=== PATIENT | female | born 1940 | race Caucasian/White ===

== ENCOUNTER 2017-07-31 08:45 | Inpatient (IN) | payer MEDICARE, OTHER ==
[~2017-07-31] VITALS: Ht 154.9 cm; Wt 50.0 kg
[2017-07-31] VITALS (18 sets, daily range): BP systolic 90–144; BP diastolic 50–69
[~2017-07-31 08:45] MED LIST: ALBU6.7H INH; ASPI-1053 PO; ATOR40TA PO; ATR0.5NEB IH; BIOT5TAB PO; CELE200C PO; CITA20TA19 PO; CLOP75TA33 PO; ERGO500014 PO; FLO44IN IH; FURO-150 PO; HYDR-565 PO; LEVO25TA7 PO; LUTE40CA PO; METO-292 PO; MIRT15TA PO; MONT10TA21 PO; MULT-1179 PO; OMEG-166 PO; OSC500T PO; PANT-47 PO; POTA10TA10 PO
[2017-07-31] MEDS ORDERED: iohexol 350 MG/ML 50ML vial IV ONE (08:59)
[2017-07-31] MEDS ORDERED: LIDOcaine 1%/PF (10mg/ml) 5ml vial ONE ×2 (08:59→09:22)
[2017-07-31] MEDS ORDERED: iohexol 350 MG/1 ML 200ml bottle ONE (08:59)
[2017-07-31] MEDS ORDERED: normal saline 1000ML IV soln IVB ONE (09:10)
[2017-07-31 09:18] LABS: BASOPHILS % (AUTO) 0.5 % (0-1); EOSINOPHILS # (AUTO) 0.1 X10'3 (0-0.9); EOSINOPHILS % (AUTO) 1.2 % (0-6); HEMATOCRIT 38.5 % (35.0-45.0); HEMOGLOBIN 12.4 g/dl (12.0-16.0); LYMPHOCYTES # (AUTO) 1.6 X10'3 (1.1-4.8); MEAN CORPUSCULAR HGB CONC 32.3 % (33.0-36.5); MEAN CORPUSCULAR VOLUME 95.8 FL (78-98); MEAN PLATELET VOLUME 8.3 FL (7.4-10.4); MONOCYTES # (AUTO) 0.5 X10'3 (0-0.9); MONOCYTES % (AUTO) 6.9 % (2-12); NEUTROPHILS # (AUTO) 5.5 X10'3 (1.8-7.7); NEUTROPHILS % (AUTO) 70.4 % (42-75); PLATELET COUNT 309 X10'3 (140-440); RED BLOOD COUNT 4.02 X10'6 (4.20-5.60); RED CELL DISTRIBUTION WIDTH 16.9 % (11.5-14.5); WHITE BLOOD COUNT 7.8 X10'3 (4.5-11.0)
[2017-07-31 09:22] LABS: INR 1.1 INR; PARTIAL THROMBOPLASTIN TIME 30 SECONDS (22-32); PROTHROMBIN TIME 11.7 SECONDS (9.0-12.0)
[2017-07-31 09:26] LABS: ALANINE AMINOTRANSFERASE 60 U/L (12-78); ALBUMIN 2.8 G/DL (3.4-5.0); ALBUMIN/GLOBULIN RATIO 0.8 (1.1-1.5); ALKALINE PHOSPHATASE 161 IU/L (46-116); ANION GAP 8 (8-16); ASPARTATE AMINO TRANSFERASE 51 U/L (10-37); BILIRUBIN,TOTAL 0.3 MG/DL (0.1-1.0); BLOOD UREA NITROGEN 14 MG/DL (7-18); CALCIUM 8.2 MG/DL (8.5-10.1); CHLORIDE 100 MMOL/L (99-107); GLUCOSE 197 MG/DL (70-104); POTASSIUM 4.4 MMOL/L (3.5-5.1); SODIUM 134 MMOL/L (135-145); TOTAL CARBON DIOXIDE 26.4 MMOL/L (24-32); TOTAL PROTEIN 6.3 G/DL (6.4-8.2); eGFR 81 ML/MIN
[2017-07-31] MEDS ORDERED: DOPamine 400mg/D5W 250ml 250 ML IV ONE (09:41)
[2017-07-31] MEDS ORDERED: heparin 1,000unit/ml 10ml vial 10 ML ONE (09:41)
[2017-07-31] MEDS ORDERED: ticagrelor 90mg tablet ONE (09:52)
[2017-07-31 10:24] LABS: CHOL/HDL RATIO 2.1 (0.00-4.99); CHOLESTEROL 62 MG/DL (0-200); HDL CHOLESTEROL 30 MG/DL (35-60); LDL CHOLESTEROL 26 MG/DL (50-100); TRIGLYCERIDES 83 MG/DL (20-135)
[2017-07-31] MEDS ORDERED: proCHLORperazine 10 MG/2 ml inj IV PRN (10:55)
[2017-07-31] MEDS ORDERED: ondansetron/PF 4mg/2ml inj IV PRN (10:55)
[2017-07-31] MEDS ORDERED: acetaminophen 325mg tablet PO PRN (10:55)
[2017-07-31] MEDS ORDERED: HYDROcodone/acetaminophen 5mg/325mg tablet PO PRN (10:55)
[2017-07-31] MEDS ORDERED: albuterol 2.5 MG/3 ML nebule NEB PRN (11:25)
[2017-07-31] MEDS: metoclopramide 10mg tablet PO SCH ×2 (12:43→18:58)
[2017-07-31] MEDS: ipratropium 0.5 MG/2.5ML nebule IH SCH ×3 (14:00→21:00)
[2017-07-31 14:26] LABS: ISTAT HGB ART 11.2 g/dl (12.0-16.0); ISTAT Hct ART 33 %PCV (35-48); ISTAT O2 SATURATION ARTERIAL 100 % (95-98); ISTAT SOURCE ART
[2017-07-31] MEDS: HYDROcodone/acetaminophen 10/325mg tab PO PRN (15:01)
[2017-07-31] MEDS ORDERED: sodium phosphate inj. 30 MMOL in dextrose 5%-water 250 ML IV PRN (19:44)
[2017-07-31] MEDS ORDERED: sodium phosphate inj. 15 MMOL in dextrose 5%-water 150 ML IV PRN (19:44)
[2017-07-31] MEDS ORDERED: magnesium 4gm in 100ml NS 100 ML IV PRN (19:45)
[2017-07-31] MEDS ORDERED: magnesium 2GM in 50ml NS 50 ML IV PRN (19:45)
[2017-07-31] MEDS ORDERED: potassium Cl 40MEQ/NS 500ml 500 ML IV PRN ×2 (19:45)
[2017-07-31] MEDS ORDERED: Neutra Phos packet PO PRN (19:45)
[2017-07-31] MEDS ORDERED: potassium Cl 20 mEq SR tablet PO PRN ×2 (19:45)
[2017-07-31] MEDS ORDERED: magnesium Cl slow-release 64mg tablet PO PRN (19:45)
[2017-07-31 20:08] LABS: HEMATOCRIT 39.7 % (35.0-45.0); MEAN CORPUSCULAR HEMOGLOBIN 31.1 PG (27.0-31.0); MEAN CORPUSCULAR HGB CONC 32.8 % (33.0-36.5); MEAN CORPUSCULAR VOLUME 94.8 FL (78-98); MEAN PLATELET VOLUME 8.2 FL (7.4-10.4); PLATELET COUNT 251 X10'3 (140-440); RED BLOOD COUNT 4.19 X10'6 (4.20-5.60); RED CELL DISTRIBUTION WIDTH 17.4 % (11.5-14.5); WHITE BLOOD COUNT 9.1 X10'3 (4.5-11.0)
[2017-07-31] MEDS: normal saline 1000ml 1,000 ML IV SCH ×2 (20:15→20:55)
[2017-07-31 20:23] LABS: ALBUMIN 2.7 G/DL (3.4-5.0); ANION GAP 11 (8-16); BLOOD UREA NITROGEN 12 MG/DL (7-18); CALCIUM 8.1 MG/DL (8.5-10.1); CHLORIDE 102 MMOL/L (99-107); GLUCOSE 145 MG/DL (70-104); MAGNESIUM 1.6 MG/DL (1.5-2.4); PHOSPHORUS 3.6 MG/DL (2.3-4.5); POTASSIUM 4.1 MMOL/L (3.5-5.1); SODIUM 137 MMOL/L (135-145); eGFR > 90 ML/MIN
[2017-07-31] MEDS: pantoprazole 40mg Tablet.DR PO SCH (20:47)
[2017-07-31] MEDS: mirtazapine 15mg tablet PO SCH (20:47)
[2017-07-31] MEDS: atorvastatin 20mg tablet PO SCH (20:47)
[2017-07-31 21:08] LABS: TROPONIN I 115.51 NG/ML (0.0-0.05)
[2017-08-01] VITALS (14 sets, daily range): BP systolic 89–111; BP diastolic 32–63
[2017-08-01 05:40] LABS: BASOPHILS % (AUTO) 0.1 % (0-1); EOSINOPHILS # (AUTO) 0.1 X10'3 (0-0.9); EOSINOPHILS % (AUTO) 0.8 % (0-6); HEMATOCRIT 34.2 % (35.0-45.0); HEMOGLOBIN 11.1 g/dl (12.0-16.0); LYMPHOCYTES # (AUTO) 1.1 X10'3 (1.1-4.8); LYMPHOCYTES % (AUTO) 13.9 % (21-51); MEAN CORPUSCULAR HEMOGLOBIN 30.9 PG (27.0-31.0); MEAN CORPUSCULAR HGB CONC 32.5 % (33.0-36.5); MEAN CORPUSCULAR VOLUME 95.2 FL (78-98); MEAN PLATELET VOLUME 8.5 FL (7.4-10.4); MONOCYTES # (AUTO) 0.7 X10'3 (0-0.9); MONOCYTES % (AUTO) 9.3 % (2-12); NEUTROPHILS # (AUTO) 5.9 X10'3 (1.8-7.7); NEUTROPHILS % (AUTO) 75.9 % (42-75); PLATELET COUNT 254 X10'3 (140-440); RED CELL DISTRIBUTION WIDTH 17.4 % (11.5-14.5); WHITE BLOOD COUNT 7.8 X10'3 (4.5-11.0)
[2017-08-01 06:07] LABS: ALBUMIN 2.5 G/DL (3.4-5.0); ANION GAP 10 (8-16); BLOOD UREA NITROGEN 14 MG/DL (7-18); CHLORIDE 102 MMOL/L (99-107); GLUCOSE 133 MG/DL (70-104); POTASSIUM 3.9 MMOL/L (3.5-5.1); SODIUM 139 MMOL/L (135-145); TOTAL CARBON DIOXIDE 27.1 MMOL/L (24-32); eGFR 81 ML/MIN
[2017-08-01] MEDS: normal saline 1000ml 1,000 ML IV SCH (06:55)
[2017-08-01] MEDS: metoclopramide 10mg tablet PO SCH ×3 (07:48→17:12)
[2017-08-01] MEDS: calcium carbonate 500mg tablet PO SCH (07:49)
[2017-08-01] MEDS: aspirin 81mg tab.chew PO SCH (07:49)
[2017-08-01] MEDS: pantoprazole 40mg Tablet.DR PO SCH ×2 (07:51→20:14)
[2017-08-01] MEDS: levoTHYROXINE 25mcg tablet PO SCH (07:51)
[2017-08-01] MEDS: montelukast 10mg tablet PO SCH (07:51)
[2017-08-01] MEDS: K and/or MAG REPLACEMENT MC SCH (08:00)
[2017-08-01] MEDS ORDERED: citalopram 20mg tablet PO SCH (08:00)
[2017-08-01] MEDS: ipratropium 0.5 MG/2.5ML nebule IH SCH ×4 (08:01→21:32)
[2017-08-01] MEDS: fluticasone furoate 100MCG/puff inhaler IH SCH (08:02)
[2017-08-01] MEDS: ticagrelor 90mg tablet PO SCH ×2 (09:57→20:14)
[2017-08-01] MEDS: HYDROcodone/acetaminophen 10/325mg tab PO PRN ×2 (12:58→17:50)
[2017-08-01] MEDS: mirtazapine 15mg tablet PO SCH (20:14)
[2017-08-01] MEDS: atorvastatin 20mg tablet PO SCH (20:14)
[2017-08-01 21:00] LABS: MAGNESIUM 2.8 MG/DL (1.5-2.4); POTASSIUM 4.2 MMOL/L (3.5-5.1)
[2017-08-02 03:00] VITALS: BP 125/54
[2017-08-02 05:21] LABS: BASOPHILS % (AUTO) 0.1 % (0-1); EOSINOPHILS % (AUTO) 0 % (0-6); HEMATOCRIT 32.9 % (35.0-45.0); HEMOGLOBIN 11.2 g/dl (12.0-16.0); LYMPHOCYTES # (AUTO) 1.1 X10'3 (1.1-4.8); LYMPHOCYTES % (AUTO) 11.5 % (21-51); MEAN CORPUSCULAR HEMOGLOBIN 31.1 PG (27.0-31.0); MEAN CORPUSCULAR VOLUME 91.6 FL (78-98); MEAN PLATELET VOLUME 8.4 FL (7.4-10.4); MONOCYTES # (AUTO) 0.9 X10'3 (0-0.9); NEUTROPHILS # (AUTO) 7.2 X10'3 (1.8-7.7); NEUTROPHILS % (AUTO) 78.4 % (42-75); PLATELET COUNT 244 X10'3 (140-440); RED BLOOD COUNT 3.59 X10'6 (4.20-5.60); RED CELL DISTRIBUTION WIDTH 16.7 % (11.5-14.5); WHITE BLOOD COUNT 9.2 X10'3 (4.5-11.0)
[2017-08-02 05:53] LABS: ALBUMIN 2.9 G/DL (3.4-5.0); ANION GAP 10 (8-16); BLOOD UREA NITROGEN 19 MG/DL (7-18); BUN/CREATININE RATIO 27.1 (6.6-38.0); CALCIUM 8.7 MG/DL (8.5-10.1); CHLORIDE 94 MMOL/L (99-107); GLUCOSE 128 MG/DL (70-104); MAGNESIUM 2.4 MG/DL (1.5-2.4); PHOSPHORUS 3.7 MG/DL (2.3-4.5); POTASSIUM 4.7 MMOL/L (3.5-5.1); SODIUM 130 MMOL/L (135-145); TOTAL CARBON DIOXIDE 26.3 MMOL/L (24-32); eGFR 81 ML/MIN
[2017-08-02 06:00] VITALS: BP 118/63
[2017-08-02] MEDS ORDERED: TICA90TA PO (07:25)
[2017-08-02] MEDS ORDERED: NITR0.4T51 SL (07:25)
[2017-08-02] MEDS: fluticasone furoate 100MCG/puff inhaler IH SCH (08:00)
[2017-08-02] MEDS: K and/or MAG REPLACEMENT MC SCH (08:00)
[2017-08-02] MEDS: ipratropium 0.5 MG/2.5ML nebule IH SCH (08:00)
[2017-08-02] MEDS: ticagrelor 90mg tablet PO SCH (08:57)
[2017-08-02] MEDS: montelukast 10mg tablet PO SCH (08:57)
[2017-08-02] MEDS: calcium carbonate 500mg tablet PO SCH (08:57)
[2017-08-02] MEDS: pantoprazole 40mg Tablet.DR PO SCH (08:58)
[2017-08-02] MEDS: metoclopramide 10mg tablet PO SCH ×2 (08:58→11:36)
[2017-08-02] MEDS: aspirin 81mg tab.chew PO SCH (08:58)
[2017-08-02] MEDS: HYDROcodone/acetaminophen 10/325mg tab PO PRN (08:58)
[2017-08-02] MEDS: levoTHYROXINE 25mcg tablet PO SCH (08:59)
[2017-08-02 11:00] VITALS: BP 109/59
[2017-08-03] MEDS ORDERED: PYRI60TA PO (06:50)
== END 2017-08-02 13:08 | disposition home or self-care (01) | DRG 246 ==
LOC: ER 08:45 → CICU 2S 10:37 → PCU 3S 08-01 10:29
PROVIDERS: ADMIT Internal Medicine Interventional Cardiology; ATTEND Nurse Practitioner Family
PROC: 4A023N7 Measurement of Cardiac Sampling and Pressure, Left Heart, Percutaneous Approach (ICD-10-PCS; principal; 2017-07-31)
PROC: B2111ZZ Fluoroscopy of Multiple Coronary Arteries using Low Osmolar Contrast (ICD-10-PCS; 2017-07-31)
PROC: B2151ZZ Fluoroscopy of Left Heart using Low Osmolar Contrast (ICD-10-PCS; 2017-07-31)
PROC: 027034Z Dilation of Coronary Artery, One Artery with Drug-eluting Intraluminal Device, Percutaneous Approach (ICD-10-PCS; 2017-07-31)
DX: I21.11 ST elevation (STEMI) myocardial infarction involving right coronary artery (principal); I50.43 Acute on chronic combined systolic (congestive) and diastolic (congestive) heart failure; I44.2 Atrioventricular block, complete; I47.2 Ventricular tachycardia; K31.84 Gastroparesis; I11.0 Hypertensive heart disease with heart failure; J44.9 Chronic obstructive pulmonary disease, unspecified; I34.0 Nonrheumatic mitral (valve) insufficiency; I73.9 Peripheral vascular disease, unspecified; M19.90 Unspecified osteoarthritis, unspecified site; E03.9 Hypothyroidism, unspecified; E78.5 Hyperlipidemia, unspecified; I25.10 Atherosclerotic heart disease of native coronary artery without angina pectoris; F17.210 Nicotine dependence, cigarettes, uncomplicated; Z90.710 Acquired absence of both cervix and uterus; Z99.81 Dependence on supplemental oxygen; Z79.51 Long term (current) use of inhaled steroids; Z79.899 Other long term (current) drug therapy; Z88.5 Allergy status to narcotic agent; Z88.0 Allergy status to penicillin; Z88.8 Allergy status to other drugs, medicaments and biological substances; Z82.41 Family history of sudden cardiac death; Z82.49 Family history of ischemic heart disease and other diseases of the circulatory system; Z83.3 Family history of diabetes mellitus
CPT/HCPCS: 93306; 93458; 99285; C9606; 36415; 71045; 80048; 80053; 80061; 82803; 83735; 84100; 84132; 84484; 85014; 85025; 85027; 85610; 85730; 88305; 93005; 94640; 94760; 97116; 97161; 97530; A6213; A6257; A6258; A6402; A6449; C1769; C1874; J1265; J1644; J2001; J3475; J7030; J7060; J8597; Q9967

== ENCOUNTER 2017-08-03 03:37 | Inpatient (IN) | payer MEDICARE, OTHER ==
[~2017-08-03] VITALS: Ht 154.9 cm; Wt 38.2 kg
[2017-08-03] VITALS (9 sets, daily range): BP systolic 92–144; BP diastolic 47–75
[~2017-08-03 03:37] MED LIST changes: -CLOP75TA33 PO; +NITR0.4T51 SL; +TICA90TA PO
[2017-08-03] MEDS ORDERED: pantoprazole 40 MG vial IV ONE ×2 (04:05→07:45)
[2017-08-03] MEDS ORDERED: normal saline 1000ML IV soln IVB ONE (04:05)
[2017-08-03] MEDS ORDERED: ondansetron/PF 4mg/2ml inj IV ONE (04:05)
[2017-08-03 05:36] LABS: BASOPHILS % (AUTO) 0.1 % (0-1); EOSINOPHILS # (AUTO) 0.1 X10'3 (0-0.9); HEMATOCRIT 33.8 % (35.0-45.0); HEMOGLOBIN 11.3 g/dl (12.0-16.0); LYMPHOCYTES # (AUTO) 0.9 X10'3 (1.1-4.8); LYMPHOCYTES % (AUTO) 8.3 % (21-51); MEAN CORPUSCULAR HEMOGLOBIN 31.3 PG (27.0-31.0); MEAN CORPUSCULAR HGB CONC 33.5 % (33.0-36.5); MEAN CORPUSCULAR VOLUME 93.3 FL (78-98); MEAN PLATELET VOLUME 8.4 FL (7.4-10.4); MONOCYTES # (AUTO) 0.8 X10'3 (0-0.9); MONOCYTES % (AUTO) 7.5 % (2-12); NEUTROPHILS # (AUTO) 9.2 X10'3 (1.8-7.7); NEUTROPHILS % (AUTO) 83.1 % (42-75); PLATELET COUNT 227 X10'3 (140-440); RED BLOOD COUNT 3.62 X10'6 (4.20-5.60); RED CELL DISTRIBUTION WIDTH 16.5 % (11.5-14.5); WHITE BLOOD COUNT 11.1 X10'3 (4.5-11.0)
[2017-08-03 06:00] LABS: ALANINE AMINOTRANSFERASE 67 U/L (12-78); ALBUMIN 2.8 G/DL (3.4-5.0); ALBUMIN/GLOBULIN RATIO 0.8 (1.1-1.5); ALKALINE PHOSPHATASE 183 IU/L (46-116); ANION GAP 8 (8-16); ASPARTATE AMINO TRANSFERASE 104 U/L (10-37); BILIRUBIN,TOTAL 0.4 MG/DL (0.1-1.0); BLOOD UREA NITROGEN 17 MG/DL (7-18); CALCIUM 8.2 MG/DL (8.5-10.1); CHLORIDE 95 MMOL/L (99-107); GLUCOSE 138 MG/DL (70-104); LIPASE 77 U/L (73-393); MAGNESIUM 1.9 MG/DL (1.5-2.4); POTASSIUM 4.8 MMOL/L (3.5-5.1); SODIUM 129 MMOL/L (135-145); TOTAL CARBON DIOXIDE 26.3 MMOL/L (24-32); TOTAL PROTEIN 6.4 G/DL (6.4-8.2); eGFR > 90 ML/MIN
[2017-08-03] MEDS ORDERED: PYRI60TA PO (06:50)
[2017-08-03 07:13] LABS: INR 1.2 INR; PARTIAL THROMBOPLASTIN TIME 35 SECONDS (22-32); PROTHROMBIN TIME 12.7 SECONDS (9.0-12.0)
[2017-08-03] MEDS ORDERED: pantoprazole 40MG/NS 100ML BAG 100 ML IV SCH (07:52)
[2017-08-03] MEDS ORDERED: albuterol 2.5 MG/3 ML nebule NEB PRN (08:10)
[2017-08-03] MEDS ORDERED: magnesium 2GM in 50ml NS 50 ML IV PRN (08:15)
[2017-08-03] MEDS ORDERED: magnesium 4gm in 100ml NS 100 ML IV PRN (08:15)
[2017-08-03] MEDS ORDERED: ondansetron/PF 4mg/2ml inj IV PRN (08:15)
[2017-08-03] MEDS ORDERED: acetaminophen 325mg tablet PO PRN ×2 (08:15)
[2017-08-03] MEDS ORDERED: potassium Cl 20 mEq SR tablet PO PRN ×2 (08:15)
[2017-08-03] MEDS ORDERED: magnesium Cl slow-release 64mg tablet PO PRN (08:15)
[2017-08-03] MEDS ORDERED: potassium Cl 40MEQ/NS 500ml 500 ML IV PRN ×2 (08:15)
[2017-08-03] MEDS ORDERED: mag hydrox/Alum hydrox/simeth 30ml oral suspension PO PRN (08:15)
[2017-08-03] MEDS ORDERED: magnesium hydroxide 30ml (MOM) UD suspension PO PRN (08:15)
[2017-08-03] MEDS: normal saline 1000ml 1,000 ML IV SCH ×2 (08:37→21:33)
[2017-08-03] MEDS ORDERED: LIDOcaine Viscous 15ml cup ONE (08:57)
[2017-08-03] MEDS ORDERED: fentaNYL/PF 50MCG/1 ML 2ML syringe ONE (08:57)
[2017-08-03] MEDS ORDERED: MIDAZolam 1mg/ml 10ml vial ONE (08:57)
[2017-08-03] MEDS ORDERED: ipratropium 0.5 MG/2.5ML nebule IH SCH (13:00)
[2017-08-03] MEDS: citalopram 20mg tablet PO SCH (13:26)
[2017-08-03] MEDS: pantoprazole 40MG/NS 100ML BAG 100 ML IV SCH ×4 (18:00→23:46)
[2017-08-03] MEDS: traMADol 50MG tablet PO SCH ×2 (18:14→23:48)
[2017-08-03] MEDS: ipratropium 0.5 MG/2.5ML nebule IH SCH (19:18)
[2017-08-03] MEDS: atorvastatin 20mg tablet PO SCH (20:41)
[2017-08-03] MEDS: ticagrelor 90mg tablet PO SCH (20:41)
[2017-08-03] MEDS ORDERED: temazepam 15mg capsule PO PRN (21:00)
[2017-08-04] VITALS (11 sets, daily range): BP systolic 98–127; BP diastolic 41–70
[2017-08-04] MEDS: pantoprazole 40MG/NS 100ML BAG 100 ML IV SCH ×4 (04:39→22:25)
[2017-08-04 06:34] LABS: BASOPHILS % (AUTO) 0.1 % (0-1); EOSINOPHILS % (AUTO) 0 % (0-6); HEMATOCRIT 32.2 % (35.0-45.0); HEMOGLOBIN 11.1 g/dl (12.0-16.0); LYMPHOCYTES % (AUTO) 11.5 % (21-51); MEAN CORPUSCULAR HEMOGLOBIN 31.8 PG (27.0-31.0); MEAN CORPUSCULAR HGB CONC 34.6 % (33.0-36.5); MEAN CORPUSCULAR VOLUME 91.8 FL (78-98); MEAN PLATELET VOLUME 8.8 FL (7.4-10.4); MONOCYTES # (AUTO) 0.8 X10'3 (0-0.9); NEUTROPHILS # (AUTO) 7.2 X10'3 (1.8-7.7); NEUTROPHILS % (AUTO) 79.4 % (42-75); PLATELET COUNT 213 X10'3 (140-440); RED CELL DISTRIBUTION WIDTH 16.5 % (11.5-14.5)
[2017-08-04 06:42] LABS: ALBUMIN 2.3 G/DL (3.4-5.0); ANION GAP 8 (8-16); BLOOD UREA NITROGEN 16 MG/DL (7-18); BUN/CREATININE RATIO 26.7 (6.6-38.0); CHLORIDE 99 MMOL/L (99-107); GLUCOSE 93 MG/DL (70-104); MAGNESIUM 1.7 MG/DL (1.5-2.4); POTASSIUM 5.1 MMOL/L (3.5-5.1); SODIUM 131 MMOL/L (135-145); TOTAL CARBON DIOXIDE 24.2 MMOL/L (24-32); eGFR > 90 ML/MIN
[2017-08-04] MEDS: montelukast 10mg tablet PO SCH (07:19)
[2017-08-04] MEDS: ticagrelor 90mg tablet PO SCH ×2 (07:20→22:29)
[2017-08-04] MEDS: levoTHYROXINE 25mcg tablet PO SCH (07:20)
[2017-08-04] MEDS: traMADol 50MG tablet PO SCH ×2 (07:20→15:44)
[2017-08-04] MEDS: citalopram 20mg tablet PO SCH (07:21)
[2017-08-04] MEDS: ipratropium 0.5 MG/2.5ML nebule IH SCH ×4 (07:30→20:19)
[2017-08-04] MEDS: K and/or MAG REPLACEMENT MC SCH (08:00)
[2017-08-04] MEDS: normal saline 1000ml 1,000 ML IV SCH (10:53)
[2017-08-04 11:38] LABS: BASOPHILS % (AUTO) 0.2 % (0-1); EOSINOPHILS % (AUTO) 0 % (0-6); HEMATOCRIT 39.5 % (35.0-45.0); HEMOGLOBIN 13.3 g/dl (12.0-16.0); LYMPHOCYTES # (AUTO) 1.1 X10'3 (1.1-4.8); MEAN CORPUSCULAR HEMOGLOBIN 31.7 PG (27.0-31.0); MEAN CORPUSCULAR HGB CONC 33.7 % (33.0-36.5); MEAN CORPUSCULAR VOLUME 94.3 FL (78-98); MEAN PLATELET VOLUME 9.2 FL (7.4-10.4); MONOCYTES # (AUTO) 0.7 X10'3 (0-0.9); NEUTROPHILS # (AUTO) 7.1 X10'3 (1.8-7.7); NEUTROPHILS % (AUTO) 79.8 % (42-75); PLATELET COUNT 216 X10'3 (140-440); RED BLOOD COUNT 4.19 X10'6 (4.20-5.60); RED CELL DISTRIBUTION WIDTH 16.5 % (11.5-14.5); WHITE BLOOD COUNT 8.9 X10'3 (4.5-11.0)
[2017-08-04] MEDS ORDERED: morphine 2 MG/ML inj. syringe IV PRN (15:00)
[2017-08-04] MEDS ORDERED: HYDROmorphone 2mg/ml vial IV PRN (15:10)
[2017-08-04] MEDS ORDERED: normal saline 1000ml 1,000 ML IV SCH (16:06)
[2017-08-04] MEDS ORDERED: LIDOcaine Viscous 15ml cup PO ONE (16:10)
[2017-08-04] MEDS ORDERED: fentaNYL/PF 50MCG/1 ML 2ML syringe IV PRN (16:10)
[2017-08-04] MEDS ORDERED: MIDAZolam 5mg/5ml vial IV PRN (16:10)
[2017-08-04] MEDS ORDERED: simethicone 40mg/0.6ml oral drops 30ml MC ONE (16:10)
[2017-08-04] MEDS ORDERED: LIDOcaine Viscous 15ml cup ONE (17:16)
[2017-08-04] MEDS ORDERED: MIDAZolam 1mg/ml 10ml vial ONE (17:16)
[2017-08-04] MEDS ORDERED: fentaNYL/PF 50MCG/1 ML 2ML syringe ONE (17:16)
[2017-08-04 20:07] LABS: BASOPHILS % (AUTO) 0.1 % (0-1); EOSINOPHILS % (AUTO) 0 % (0-6); HEMATOCRIT 35.8 % (35.0-45.0); HEMOGLOBIN 11.9 g/dl (12.0-16.0); LYMPHOCYTES # (AUTO) 1.1 X10'3 (1.1-4.8); LYMPHOCYTES % (AUTO) 10.4 % (21-51); MEAN CORPUSCULAR HEMOGLOBIN 31.5 PG (27.0-31.0); MEAN CORPUSCULAR HGB CONC 33.4 % (33.0-36.5); MEAN CORPUSCULAR VOLUME 94.4 FL (78-98); MEAN PLATELET VOLUME 8.8 FL (7.4-10.4); MONOCYTES % (AUTO) 9.2 % (2-12); NEUTROPHILS # (AUTO) 8.5 X10'3 (1.8-7.7); NEUTROPHILS % (AUTO) 80.3 % (42-75); PLATELET COUNT 197 X10'3 (140-440); RED BLOOD COUNT 3.79 X10'6 (4.20-5.60); RED CELL DISTRIBUTION WIDTH 16.8 % (11.5-14.5); WHITE BLOOD COUNT 10.6 X10'3 (4.5-11.0)
[2017-08-04] MEDS: polyethylene glycol 3350 17gm powd pack PO SCH (21:00)
[2017-08-04] MEDS: atorvastatin 20mg tablet PO SCH (22:28)
[2017-08-04] MEDS ORDERED: furosemide 10 MG/1 ML 10ml inj IV ONE (23:55)
[2017-08-05] VITALS (9 sets, daily range): BP systolic 105–134; BP diastolic 47–64
[2017-08-05] MEDS: traMADol 50MG tablet PO SCH ×3 (00:12→15:01)
[2017-08-05] MEDS: normal saline 1000ml 1,000 ML IV SCH ×2 (00:40→13:14)
[2017-08-05] MEDS: pantoprazole 40MG/NS 100ML BAG 100 ML IV SCH ×3 (01:00→10:18)
[2017-08-05 06:41] LABS: BASOPHILS % (AUTO) 0.4 % (0-1); EOSINOPHILS # (AUTO) 0.1 X10'3 (0-0.9); EOSINOPHILS % (AUTO) 1.1 % (0-6); HEMATOCRIT 36.2 % (35.0-45.0); HEMOGLOBIN 12.4 g/dl (12.0-16.0); LYMPHOCYTES % (AUTO) 9.8 % (21-51); MEAN CORPUSCULAR HEMOGLOBIN 31.7 PG (27.0-31.0); MEAN CORPUSCULAR HGB CONC 34.2 % (33.0-36.5); MEAN CORPUSCULAR VOLUME 92.8 FL (78-98); MEAN PLATELET VOLUME 9.1 FL (7.4-10.4); MONOCYTES % (AUTO) 9.6 % (2-12); NEUTROPHILS # (AUTO) 8.2 X10'3 (1.8-7.7); NEUTROPHILS % (AUTO) 79.1 % (42-75); PLATELET COUNT 226 X10'3 (140-440); RED CELL DISTRIBUTION WIDTH 17.5 % (11.5-14.5); WHITE BLOOD COUNT 10.3 X10'3 (4.5-11.0)
[2017-08-05 06:53] LABS: ALBUMIN 2.2 G/DL (3.4-5.0); ANION GAP 13 (8-16); BLOOD UREA NITROGEN 18 MG/DL (7-18); CALCIUM 8.1 MG/DL (8.5-10.1); CHLORIDE 100 MMOL/L (99-107); GLUCOSE 53 MG/DL (70-104); MAGNESIUM 1.9 MG/DL (1.5-2.4); POTASSIUM 4.1 MMOL/L (3.5-5.1); SODIUM 135 MMOL/L (135-145); TOTAL CARBON DIOXIDE 22.4 MMOL/L (24-32); eGFR > 90 ML/MIN
[2017-08-05] MEDS: ipratropium 0.5 MG/2.5ML nebule IH SCH ×4 (07:57→19:00)
[2017-08-05] MEDS: levoTHYROXINE 25mcg tablet PO SCH (07:57)
[2017-08-05] MEDS: ticagrelor 90mg tablet PO SCH ×2 (07:58→21:12)
[2017-08-05] MEDS: montelukast 10mg tablet PO SCH (07:58)
[2017-08-05] MEDS: K and/or MAG REPLACEMENT MC SCH (08:00)
[2017-08-05 12:23] LABS: BASOPHILS % (AUTO) 0.1 % (0-1); EOSINOPHILS # (AUTO) 0.1 X10'3 (0-0.9); EOSINOPHILS % (AUTO) 0.9 % (0-6); HEMATOCRIT 34.1 % (35.0-45.0); HEMOGLOBIN 11.5 g/dl (12.0-16.0); LYMPHOCYTES # (AUTO) 0.9 X10'3 (1.1-4.8); LYMPHOCYTES % (AUTO) 9.6 % (21-51); MEAN CORPUSCULAR HEMOGLOBIN 31.4 PG (27.0-31.0); MEAN CORPUSCULAR HGB CONC 33.7 % (33.0-36.5); MONOCYTES # (AUTO) 0.7 X10'3 (0-0.9); MONOCYTES % (AUTO) 7.4 % (2-12); NEUTROPHILS # (AUTO) 7.9 X10'3 (1.8-7.7); PLATELET COUNT 230 X10'3 (140-440); RED BLOOD COUNT 3.67 X10'6 (4.20-5.60); RED CELL DISTRIBUTION WIDTH 16.7 % (11.5-14.5); WHITE BLOOD COUNT 9.6 X10'3 (4.5-11.0)
[2017-08-05] MEDS: HYDROcodone/acetaminophen 10/325mg tab PO PRN (13:09)
[2017-08-05 20:39] LABS: BASOPHILS % (AUTO) 0.2 % (0-1); EOSINOPHILS % (AUTO) 0 % (0-6); HEMATOCRIT 32.7 % (35.0-45.0); LYMPHOCYTES # (AUTO) 0.6 X10'3 (1.1-4.8); LYMPHOCYTES % (AUTO) 6.8 % (21-51); MEAN CORPUSCULAR HEMOGLOBIN 31.3 PG (27.0-31.0); MEAN CORPUSCULAR HGB CONC 33.6 % (33.0-36.5); MEAN CORPUSCULAR VOLUME 93.4 FL (78-98); MEAN PLATELET VOLUME 8.8 FL (7.4-10.4); MONOCYTES # (AUTO) 0.8 X10'3 (0-0.9); MONOCYTES % (AUTO) 9.1 % (2-12); NEUTROPHILS # (AUTO) 7.4 X10'3 (1.8-7.7); NEUTROPHILS % (AUTO) 83.9 % (42-75); PLATELET COUNT 221 X10'3 (140-440); RED BLOOD COUNT 3.51 X10'6 (4.20-5.60); RED CELL DISTRIBUTION WIDTH 16.5 % (11.5-14.5); WHITE BLOOD COUNT 8.9 X10'3 (4.5-11.0)
[2017-08-05] MEDS: atorvastatin 20mg tablet PO SCH (21:12)
[2017-08-05] MEDS: polyethylene glycol 3350 17gm powd pack PO SCH (21:13)
[2017-08-06] MEDS: normal saline 1000ml 1,000 ML IV SCH ×2 (02:26→15:50)
[2017-08-06 02:30] VITALS: BP 102/53
[2017-08-06 06:00] VITALS: BP 120/59
[2017-08-06 06:53] LABS: ALBUMIN 2.2 G/DL (3.4-5.0); ANION GAP 9 (8-16); BLOOD UREA NITROGEN 13 MG/DL (7-18); BUN/CREATININE RATIO 21.7 (6.6-38.0); CALCIUM 7.8 MG/DL (8.5-10.1); CHLORIDE 100 MMOL/L (99-107); GLUCOSE 111 MG/DL (70-104); SODIUM 133 MMOL/L (135-145); TOTAL CARBON DIOXIDE 24.4 MMOL/L (24-32); eGFR > 90 ML/MIN
[2017-08-06] MEDS: ipratropium 0.5 MG/2.5ML nebule IH SCH ×3 (07:28→14:47)
[2017-08-06] MEDS ORDERED: pantoprazole 40mg Tablet.DR PO SCH (07:30)
[2017-08-06] MEDS: traMADol 50MG tablet PO SCH ×3 (08:00→15:50)
[2017-08-06] MEDS: K and/or MAG REPLACEMENT MC SCH (08:00)
[2017-08-06] MEDS: ticagrelor 90mg tablet PO SCH (08:07)
[2017-08-06] MEDS: montelukast 10mg tablet PO SCH (08:07)
[2017-08-06] MEDS: levoTHYROXINE 25mcg tablet PO SCH (08:07)
[2017-08-06] MEDS: HYDROcodone/acetaminophen 10/325mg tab PO PRN (08:09)
[2017-08-06 11:00] VITALS: BP 120/61
[2017-08-06] MEDS ORDERED: bisacodyl 10mg suppository rectal RC STA (11:18)
== END 2017-08-06 17:20 | disposition home health service (06) | DRG 377 ==
LOC: ER 03:37 → ED HOLD 07:39 → EDBEDREQ 12:43 → PCU 3S 14:16
PROVIDERS: ADMIT Internal Medicine; ATTEND Legal Medicine
PROC: 0DJ08ZZ Inspection of Upper Intestinal Tract, Via Natural or Artificial Opening Endoscopic (ICD-10-PCS; 2017-08-03)
PROC: 0DB68ZX Excision of Stomach, Via Natural or Artificial Opening Endoscopic, Diagnostic (ICD-10-PCS; principal; 2017-08-04)
DX: K29.51 Unspecified chronic gastritis with bleeding (principal); E43 Unspecified severe protein-calorie malnutrition; I44.2 Atrioventricular block, complete; E87.1 Hypo-osmolality and hyponatremia; K31.84 Gastroparesis; I50.9 Heart failure, unspecified; Z68.1 Body mass index [BMI] 19.9 or less, adult; J44.9 Chronic obstructive pulmonary disease, unspecified; I25.10 Atherosclerotic heart disease of native coronary artery without angina pectoris; R74.8 Abnormal levels of other serum enzymes; E78.5 Hyperlipidemia, unspecified; M19.90 Unspecified osteoarthritis, unspecified site; E03.9 Hypothyroidism, unspecified; I73.9 Peripheral vascular disease, unspecified; F17.210 Nicotine dependence, cigarettes, uncomplicated; Z90.710 Acquired absence of both cervix and uterus; Z95.5 Presence of coronary angioplasty implant and graft; Z88.0 Allergy status to penicillin; Z88.5 Allergy status to narcotic agent; Z88.1 Allergy status to other antibiotic agents; Z88.6 Allergy status to analgesic agent; Z79.899 Other long term (current) drug therapy; Z79.82 Long term (current) use of aspirin; Z83.3 Family history of diabetes mellitus; Z82.49 Family history of ischemic heart disease and other diseases of the circulatory system; Z71.6 Tobacco abuse counseling
CPT/HCPCS: 36415; 43239; 71045; 80048; 80053; 83690; 83735; 84484; 85025; 85610; 85730; 86870; 86885; 86900; 86901; 86920; 87070; 93005; 93308; 93926; 94640; 94760; 96361; 96374; 96375; 99285; A4315; A4620; A6212; A6258; C9113; G0500; J1940; J2250; J2405; J3010; J7030